=== PATIENT | male | born 1985 | race Caucasian/White ===

== ENCOUNTER 2019-01-15 11:53 | Emergency (ER) | payer OTHER ==
[2019-01-15] MEDS ORDERED: NS 500 ML IV ONE (12:10)
[2019-01-15] MEDS ORDERED: DIAZEPAM 10 MG/2 ML SYR IVP ONE (12:11)
--- NOTE | 2019-01-15 12:15 | EDPHY ---
H & P Time Seen by Provider: 01/15/19 11:57 HPI/ROS: HPI Palpitations. Stressed out. 33-year-old male by private vehicle with his father. This patient reports that he had a stressful morning at work. During this time he felt anxious and up tight. He reports that he then met his father for lunch. He reports that while sitting at lunch she felt his heart racing and had a transient sensation of lightheadedness but did not lose consciousness. He also reports that he has sensation of tingling in both of his hands. He states that this has never happened to him in the past. He denied any significant chest pain or discomfort. No shortness of breath. He reports that he still feels anxious but is feeling better. ROS: Constitutional: No fever, no chills. As above. Eyes: No discharge. No changes in vision. ENT: No sore throat. No nasal congestion or rhinorrhea. Respiratory: No cough. No shortness of breath. Cardiac: No chest pain, as above. Gastrointestinal: No abdominal pain, no vomiting, no diarrhea. Genitourinary: No hematuria. No dysuria or increased frequency with urination. Musculoskeletal: No back pain. No neck pain. No myalgias or arthralgias. Skin: Intermittent hypersensitivity rash on chest. Has had it for years. Neurological: No headache. No focal weakness or altered sensation. Past medical history: No past medical history. He is currently finishing a course of antibiotics after an insect bite on his extremity. He has been on this medication for 6 days it has not had any apparent reaction to it. Social history: Nonsmoker. He drinks alcohol occasionally. Denies any IV drugs or street drugs. He is here with his father. Physical Exam: General Appearance: Alert, mildly anxious but he is not in distress. This patient is responding to questions appropriately and in full sentences. This patient appears well-hydrated and well-nourished. Eyes: Pupils equal and round no pallor or injection. No lid edema, erythema or injection. Respiratory: There are no retractions, lungs are clear to auscultation with good air movement bilaterally. Cardiovascular: Regular rate and rhythm. No murmur. Gastrointestinal: Abdomen is soft and nontender, no masses, bowel sounds normal. No focal tenderness at McBurney's point. No Hardin sign. Neurological: Motor sensory function is grossly intact. Cranial nerves are normal. Gait is normal. Skin: Warm and dry, diffuse, subtle erythematous blanching urticarial type rash over chest. No petechiae. Musculoskeletal: Neck is supple and nontender. Extremities are symmetrical. All joints range without pain or impingement. Psychiatric: No agitation. No depression. Database: EKG: EKG time is 12:03 p.m.; EKG shows a narrow complex normal sinus rhythm with a ventricular rate of 74. The MN, QRS, QT intervals are within normal limits. There are no ST-T wave changes indicative of ischemic or injury pattern. Early repolarization pattern noted. No evidence of right heart strain. No evidence of Brugada syndrome, WPW, hypertrophic cardiomyopathy. Interpreted by me. Imaging: Procedures: Emergency department course: Triage vital signs reviewed. He is mildly hypertensive. Vital signs are otherwise normal. He is afebrile. IV placed. He was placed on a electronic masking system operator. He was started on IV normal saline with 500 cc to be given over an hour. EKG obtained and reviewed by myself. He will be given 5 mg of IV Valium for anxiety. His presentation is consistent with an anxiety reaction/panic attack. However, he tells me that he has never had this happen to him before and both him and his father concern. They both endorse workup. 12:55 p.m., the patient was re-evaluated, resting comfortably at this time. He feels much more relaxed after above medication. Results of his emergency department workup were reviewed with him and his father. His vital signs were reviewed and are unremarkable. He has been asymptomatic since being in the emergency department. By his father feel comfortable with him going home. I feel this is reasonable. Follow-up and return to emergency department precautions reviewed with him. All of his questions were answered. The patient was discharged in good condition with his father. Differential Diagnosis: The differential diagnosis on this patient includes but is not limited to panic attack, anxiety reaction. Acute coronary syndrome, ventricular tachycardia, atrial fibrillation, other arrhythmia, pulmonary embolism, anemia, electrolyte abnormality unlikely. This represents a partial list of diagnoses considered. These considerations are based on history, physical exam, past history, reassessment and diagnostic testing. Constitutional: Initial Vital Signs Temperature (C) 37 C 01/15/19 12:00 Heart Rate 74 01/15/19 12:00 Respiratory Rate 18 01/15/19 12:00 Blood Pressure 148/84 H 01/15/19 12:00 O2 Sat (%) 96 01/15/19 12:00 O2 Delivery Mode Room Air Allergies/Adverse Reactions: No Known Allergies Allergy (Unverified 01/15/19 12:06) Home Medications: Medication Instructions Recorded NK [No Known Home Meds] 01/15/19 Medical Decision Making - Data Points Laboratory Results: 01/15/19 01/15/19 12:27 12:27 POC Sodium 138 mEq/L mEq/L (135-145) POC Potassium 3.8 mEq/L mEq/L (3.3-5.0) POC Chloride 101.0 mEq/L mEq/L (97-110) POC Total CO2 28 mEq/L mEq/L (22-31) POC BUN 10 mg/dL mg/dL (7-23) POC Creatinine 1.1 mg/dL mg/dL (0.7-1.3) POC Glucose 115 mg/dL H mg/dL (70-100) POC Calcium 9.2 mg/dL mg/dL (8.5-10.4) POC Troponin I 0.00 ng/mL ng/mL (0.00-0.08) Medications Given: Discontinued Medications Diazepam (Valium) 5 mg IVP EDNOW ONE Stop: 01/15/19 12:12 Last Admin: 01/15/19 12:32 Dose: 5 mg Sodium Chloride (Ns) 500 mls @ 1,000 mls/hr IV EDNOW ONE PRN Reason: Protocol Stop: 01/15/19 12:39 Last Admin: 01/15/19 12:31 Dose: 500 mls Point of Care Test Results: CBC CBC Collection Date 01/15/19 CBC Collection Time 12:25 WBC 6.87 RBC 4.96 HGB 16.7 HCT 46.6 PLT 208 Neut # 5.03 Neut 73.2 LYMPH # 1.31 LYMPH 19.1 MCV 94.0 Chemistry 01/15/19 01/15/19 12:27 12:27 POC Sodium 138 mEq/L mEq/L (135-145) POC Potassium 3.8 mEq/L mEq/L (3.3-5.0) POC Chloride 101.0 mEq/L mEq/L (97-110) POC Total CO2 28 mEq/L mEq/L (22-31) POC BUN 10 mg/dL mg/dL (7-23) POC Creatinine 1.1 mg/dL mg/dL (0.7-1.3) POC Glucose 115 mg/dL H mg/dL (70-100) POC Calcium 9.2 mg/dL mg/dL (8.5-10.4) POC Troponin I 0.00 ng/mL ng/mL (0.00-0.08) Departure - Departure Disposition: Home, Routine, Self-Care Clinical Impression: Anxiety reaction, Rash Condition: Good Instructions: Panic Attack (ED) Additional Instructions: Read and follow provided instructions. Follow-up with your primary care physician in 1-2 days as needed for re- evaluation. Keep yourself well hydrated. Get plenty of rest. Regarding treatment for you're recurrent rash. Try 25-50 mg of Benadryl and 20 mg of Pepcid taken tonight before bed. You should follow-up with her primary care physician to discuss further management of this recurring rash or a double ending machine operator. Return to the emergency department for worsening symptoms, racing heart beat or palpitations, chest pain, shortness of breath or other serious concerns. Referrals: NONE *PRIMARY CARE P,. [Primary Care Provider] - As per Instructions
[2019-01-15 13:18] VITALS: BP 145/85
== END 2019-01-15 12:59 | disposition home or self-care (01) ==
LOC: CED 11:53
DX: F41.1 Generalized anxiety disorder (principal); R21 Rash and other nonspecific skin eruption; E86.9 Volume depletion, unspecified
CPT/HCPCS: 80048-ER; 84484-ER; 85025-QW-ER; 96361-ER; 96374-ER; 99284-ER; J3360